=== PATIENT | female | born 1965 | race African-American/Black ===

== ENCOUNTER 2016-12-26 15:05 | Inpatient (IN) | payer OTHER ==
--- NOTE | 2016-12-26 16:01 | ER Document Report ---
ED General - General Chief Complaint: Ankle Swelling Stated Complaint: ANKLE AND LEG SWELLING Time Seen by Provider: 12/26/16 15:47 Mode of Arrival: Ambulatory Information source: Patient Notes: 51-year-old female history of hypertension who takes losartan hydrochlorothiazide 12.5 mg presents with complaints of bilateral lower extremity edema. Patient denies any shortness breath difficult to breathing denies any difficulty sleeping flat. She notes that the edema has been ongoing for months was placed on the water pill which improved initially but now it has worsened. TRAVEL OUTSIDE OF THE [place] IN LAST 30 DAYS: No - HPI Onset: Other Onset/Duration: Persistent Quality of pain: Pressure Severity: Moderate Pain Level: 2 Associated symptoms: Leg swelling - bilateral Exacerbated by: Movement Relieved by: Other - HCTZ imprved Similar symptoms previously: Yes Recently seen / treated by doctor: Yes - Related Data Allergies/Adverse Reactions: No Known Allergies Allergy (Unverified 12/26/16 15:11) Home Medications: Current Home Medications Valsartan/Hydrochlorothiazide [Valsartan-Hctz 80-12.5 mg Tab] 1 each PO DAILY [History] Past Medical History - Social History Smoking Status: Never Smoker Cigarette use (# per day): No Chew tobacco use (# tins/day): No Smoking Education Provided: No Frequency of alcohol use: None Drug Abuse: None Family History: Reviewed & Not Pertinent Patient has suicidal ideation: No Patient has homicidal ideation: No - Past Medical History Cardiac Medical History: Reports: Hx Hypertension Renal/ Medical History: Denies: Hx Peritoneal Dialysis GI Medical History: Reports: Hx Gastroesophageal Reflux Disease Past Surgical History: Reports: Hx Hysterectomy Review of Systems - Review of Systems Notes: REVIEW OF SYSTEMS: CONSTITUTIONAL : Denies fever, chills, or sweats. Denies recent illness. EENT: Denies eye, ear, throat, or mouth pain or symptoms. Denies nasal or sinus congestion or discharge. Denies throat, tongue, or mouth swelling or difficulty swallowing. CARDIOVASCULAR: Denies chest pain. Denies palpitations or racing or irregular heart beat. Admits to bilateral lower extremity edema RESPIRATORY: Denies cough, cold, or chest congestion. Denies shortness of breath, difficulty breathing, or wheezing. GASTROINTESTINAL: Denies abdominal pain or distention. Denies nausea, vomiting , or diarrhea. Denies blood in vomitus, stools, or per rectum. Denies black, tarry stools. Denies constipation. GENITOURINARY: Denies difficulty urinating, painful urination, burning, frequency, blood in urine, or discharge. FEMALE GENITOURINARY: Denies vaginal bleeding, heavy or abnormal periods, irregular periods. Denies vaginal discharge or odor. MUSCULOSKELETAL: Denies back or neck pain or stiffness. Denies joint pain or swelling. SKIN: Denies rash, lesions or sores. HEMATOLOGIC : Denies easy bruising or bleeding. LYMPHATIC: Denies swollen, enlarged glands. NEUROLOGICAL: Denies confusion or altered mental status. Denies passing out or loss of consciousness. Denies dizziness or lightheadedness. Denies headache. Denies weakness or paralysis or loss of use of either side. Denies problems with gait or speech. Denies sensory loss, numbness, or tingling. Denies seizures. PSYCHIATRIC: Denies anxiety or stress. Denies depression, suicidal ideation, or homicidal ideation. ALL OTHER SYSTEMS REVIEWED AND NEGATIVE. PHYSICAL EXAMINATION: GENERAL: Well-appearing, well-nourished and in no acute distress. HEAD: Atraumatic, normocephalic. EYES: Pupils equal round and reactive to light, extraocular movements intact, conjunctiva are normal. ENT: Nares patent, oropharynx clear without exudates. Moist mucous membranes. NECK: Normal range of motion, supple without lymphadenopathy LUNGS: Breath sounds clear to auscultation bilaterally and equal. No wheezes rales or rhonchi. HEART: Regular rate and rhythm without murmurs ABDOMEN: Soft, nontender, nondistended abdomen. No guarding, no rebound. No masses appreciated. Female : deferred Musculoskeletal: +3 pitting edema bilateral lower extremities NEUROLOGICAL: Cranial nerves grossly intact. Normal speech, normal gait. Normal sensory, motor exams PSYCH: Normal mood, normal affect. SKIN: Warm, Dry, normal turgor, no rashes or lesions noted. Dictation was performed using [employer] voice recognition software Physical Exam - Vital signs Vitals: Temp Pulse BP Pulse Ox 98.6 F 102 H 181/97 H 100 12/26/16 15:12 12/26/16 15:12 12/26/16 15:12 12/26/16 15:12 Course - Re-evaluation Re-evalutation: 12/26/16 16:01 Lung sounds are clear patient noted respiratory distress, workup for congestive heart failure ordered otherwise patient will need to increase Lasix 12/26/16 16:53 12/26/16 16:56 Pt noted have bilateral effusions, creatinine of 11, bun of 110 Dr tyler will admit if Dr Desai is on board Dr Desai 12/26/16 17:05 Dr Desai will be around until Dr Tyler will admit to the [facility] - Vital Signs Vital signs: Temp Pulse Resp BP Pulse Ox 98.6 F 102 H 181/97 H 100 12/26/16 15:12 12/26/16 15:12 12/26/16 15:12 12/26/16 15:12 - Laboratory Result Diagrams: 12/26/16 16:15 12/26/16 16:15 Laboratory results interpreted by me: 12/26/16 16:15 Chloride 109 H Carbon Dioxide 14 L BUN 117 H Creatinine 11.56 H Est GFR ( Amer) 4 L Est GFR (Non-Af Amer) 3 L Calcium 7.3 L ALT 56 H Creatine Kinase 150 H Albumin 3.3 L - Diagnostic Test Radiology reviewed: Image reviewed, Reports reviewed Discharge - Discharge Clinical Impression: Renal failure Qualifiers: Renal failure chronicity: acute Acute renal failure type: unspecified Qualified Code(s): N17.9 - Acute kidney failure, unspecified Hypertension Qualifiers: Hypertension type: essential hypertension Qualified Code(s): I10 - Essential ( primary) hypertension Hypertension Qualifiers: Hypertension type: essential hypertension Qualified Code(s): I10 - Essential ( primary) hypertension Condition: Fair Disposition: ADMITTED INPATIENT Admitting Provider: Hospitalist Unit Admitted: [facility]
[2016-12-26 16:32] LABS: ABSOLUTE BASOPHILS # (AUTO) 0.1 10^3/uL (0.0-0.2); ABSOLUTE EOSINOPHILS # (AUTO) 0.1 10^3/uL (0.0-0.6); ABSOLUTE LYMPHOCYTES (AUTO) 1.2 10^3/uL (0.5-4.7); ABSOLUTE MONOCYTES (AUTO) 0.6 10^3/uL (0.1-1.4); BASOPHILS % (AUTO) 1.2 % (0-2); EOSINOPHILS % (AUTO) 2.1 % (0-6); HGB HCT DIFFERENCE -0.8; LYMPHOCYTES % (AUTO) 20.4 % (13-45); MEAN CORPUSCULAR HEMOGLOBIN 28.3 pg (27.0-33.4); MEAN CORPUSCULAR HGB CONC 31.9 g/dL (32.0-36.0); MEAN CORPUSCULAR VOLUME 89 fl (80-97); MONOCYTES % (AUTO) 10.7 % (3-13); RED BLOOD COUNT 2.25 10^6/uL (3.72-5.28); RED CELL DISTRIBUTION WIDTH 13.8 % (11.5-14.0); SEGMENTED NEUTROPHILS % (AUTO) 65.6 % (42-78)
--- NOTE | 2016-12-26 16:40 | RADIOLOGY REPORT (SQ) ---
EXAM DESCRIPTION: CHEST PA/LAT COMPLETED DATE/TIME: 12/26/2016 4:26 pm REASON FOR STUDY: sob , bilateral edema COMPARISON: 02/12/2008 EXAM PARAMETERS: NUMBER OF VIEWS: two views TECHNIQUE: Digital Frontal and Lateral radiographic views of the chest acquired. RADIATION DOSE: NA LIMITATIONS: none FINDINGS: LUNGS AND PLEURA: Bilateral pleural effusions are present. An infiltrate versus atelectas is is suggested in both lung bases. MEDIASTINUM AND HILAR STRUCTURES: No masses or contour abnormalities. HEART AND VASCULAR STRUCTURES: Cardiomegaly with mild pulmonary vascular prominence but no indu pulm onary edema. BONES: No acute findings. HARDWARE: None in the chest. OTHER: No other significant finding. IMPRESSION: 1. Cardiomegaly with bilateral pleural effusions but no indu CHF. 2. Pneumonia versus atelectasis cannot be excluded from either lower lobe. TECHNICAL DOCUMENTATION: JOB ID: [id number] [employer]- All Rights Reserved
[2016-12-26 16:41] LABS: ALANINE AMINOTRANSFERASE 56 U/L (9-52); ALBUMIN 3.3 g/dL (3.5-5.0); ALKALINE PHOSPHATASE 108 U/L (38-126); ANION GAP 16 (5-19); ASPARTATE AMINO TRANSFERASE 23 U/L (14-36); BILIRUBIN,DIRECT 0.3 mg/dL (0.0-0.4); BILIRUBIN,TOTAL 0.3 mg/dL (0.2-1.3); BLOOD UREA NITROGEN 117 mg/dL (7-20); CALCIUM 7.3 mg/dL (8.4-10.2); CARBON DIOXIDE 14 mmol/L (22-30); CHLORIDE 109 mmol/L (98-107); CREATINE KINASE 150 U/L (30-135); CREATININE RESULT 11.56 mg/dL (0.52-1.25); GLUCOSE 87 mg/dL (75-110); SODIUM 138.7 mmol/L (137-145); TOTAL PROTEIN 6.4 g/dL (6.3-8.2)
[2016-12-26 16:52] LABS: CREATINE KINASE MB 1.57 ng/mL (<4.55)
[2016-12-26 16:57] LABS: TROPONIN I 0.095 ng/mL
[2016-12-26 17:08] LABS: HEMOGLOBIN 6.4 g/dL (12.0-15.5)
[2016-12-26 17:29] LABS: PROTHROMBIN TIME 14.3 SEC (11.4-15.4)
[2016-12-26 17:30] LABS: PARTIAL THROMBOPLASTIN TIME 31.6 SEC (23.5-35.8)
[2016-12-26] MEDS ORDERED: ACETAMINOPHEN 325 MG TABLET PO PRN (17:33)
[2016-12-26] MEDS ORDERED: ONDANSETRON HCL INJ/PF 4 MG/2 ML SDV IV PRN (17:33)
[2016-12-26] MEDS ORDERED: NITROGLYCERIN 2% OINTMENT 1 GM PACKET TP SCH (18:00)
[2016-12-26] MEDS ORDERED: CLONIDINE HCL 0.1 MG TABLET PO ONE (18:00)
[2016-12-26 18:29] LABS: THYROID STIMULATING HORMONE 4.24 uIU/mL (0.47-4.68)
--- NOTE | 2016-12-26 19:42 | HX & PHYSICAL/TRANSFER SUMM E ---
History and Physical/Transfer Summary NAME: MELISSA CASIANO : 1965 AGE: 51Y ADMITTED: 12/26/2016 TRANSFERRED: 12/26/2016 RECEIVING PHYSICIAN: Dr. Borges. RECEIVING FACILITY: [facility]. PRIMARY CARE PHYSICIAN: TESHA RICK M.D. DISCHARGE DIAGNOSES: 1. Acute renal failure. 2. Acute likely diastolic congestive heart failure. 3. Anemia, likely secondary to anemia of chronic disease and delusional anemia. 4. Metabolic acidosis, high anion gap. 5. Acute volume overload. 6. Hypertensive emergency. CHIEF COMPLAINT: Shortness of breath/swelling. HISTORY OF PRESENT ILLNESS: The patient is a 51-year-old female with a history of hypertension, who was initially started on valsartan in January of this year, and in October of this year began noticing some swelling in her lower extremities. At that time she was started on hydrochlorothiazide component to her blood pressure medication and this was also increased by her physician's hospital aides and assistants teacher. The patient reports that she has had increasing shortness of breath as well as bilateral lower extremity swelling over the last several weeks. She does complain of nausea, shortness of breath particularly with leaning forward and exertion, itching, nausea, anorexia, and has also noted some diarrhea daily for the last several weeks. The patient denies any associated hematochezia or melena. The patient denies any antecedent illness including sore throat, skin infection or other illness. The patient denies any HIV exposure. PAST MEDICAL HISTORY: Significant for hypertension. PAST SURGICAL HISTORY: Significant for hysterectomy. SOCIAL HISTORY: The patient denies tobacco, alcohol or the use of illicit drugs. FAMILY HISTORY: Her mother has hypertension. Her father is healthy. Her daughter is healthy and no one in her family has known kidney issues. CODE STATUS: FULL CODE. Her mother is her surrogate decision-maker. ALLERGIES: No known drug allergies. HOME MEDICATIONS: Only include valsartan/hydrochlorothiazide 80/12.5 one tab p.o. daily. CURRENT MEDICATIONS: 1. Tylenol 650 p.o. q.4 h. p.r.n. 2. Aspirin 325 mg p.o. daily. 3. Colace 100 mg p.o. daily. 4. Heparin 5000 units subcutaneous q.8 h. 5. Nitroglycerin 0.5 gm topical q.6 h. 6. Zofran 4 mg IV q.6 h. 7. Saline flush. REVIEW OF SYSTEMS: Constitutional: She denies fever or chills. Admits to weight gain, denies weight loss. Admits to anorexia. HEENT: Denies visual disturbance, headache, hearing loss. Respiratory: Admits to dyspnea, cough, denies hemoptysis or pleurisy. Cardiac: Denies chest pain, admits to PND, orthopnea, and edema. Abdomen: Denies abdominal pain, admits to nausea, denies vomiting, admits to diarrhea, denies constipation, hematemesis, melena, hematochezia. GI: Denies dysuria, urgency, frequency or hematuria, denies decreased urination, denies coca-cola colored urine, denies foul-smelling urine. Skin: Denies rashes or wounds, admits to dry skin around her abdomen. Musculoskeletal: Denies joint pain and actual joint swelling. Neuro: Denies weakness, numbness, dizziness, dysphasia, dysarthria, ataxia. Endocrine: Denies polydipsia, polyuria, hot or cold intolerance. Psychiatric: Denies depression, anxiety, hallucinations or delusion. Hematology: Denies easy bleeding or bruising. PHYSICAL EXAMINATION: VITAL SIGNS: Temperature is 98.6, pulse 102, blood pressure is 181/97, respiratory rate is 25, saturation of 100% on room air. GENERAL: Patient is well-fed, well-nourished female who appears to be acutely ill. She is in mild distress. HEENT: Atraumatic, normocephalic. Pupils are equal, round, and reactive to light and accommodation. Extraocular eye movements are intact. She has no scleral icterus. Her conjunctivae are clear. Her mucosa are moist. The patient has significant jugular venous distension to the midline of her jaw, and the patient's trachea midline. She has no thyromegaly and no lymphadenopathy. RESPIRATORY: The patient has diminished breath sounds bilaterally from mid-lung down as well as bilateral rales. She has no wheezes or rhonchi noted. CARDIOVASCULAR: Regular rate and rhythm. She is tachycardic. She has a rub present and she has an S4 gallop. The patient has a soft systolic murmur best heard at the left upper sternal border. ABDOMEN: Soft, mildly protuberant, nondistended, nontender to palpation without rebound, rigidity or guarding. She has negative Lacey sign and normal bowel sounds. RECTAL: Deferred. GENITOURINARY: Deferred. EXTREMITIES: Reveal 4+ bilateral lower extremity edema to the thighs. No cyanosis or clubbing is noted. MUSCULOSKELETAL: Reveals no joint swelling or deformity. VASCULAR: Reveals normal peripheral pulses, but I am unable to appreciate her dorsalis pedis pulses bilaterally. NEUROLOGIC: The patient is alert and oriented to person, place and time. Normal speech. Cranial nerves are grossly intact. Strength is equal, 5/5 in upper and lower extremities and tactile sensation is present in all extremities. SKIN: Reveals no rashes, wounds or worrisome skin lesions. PSYCHIATRIC: She does have a normal mood and affect. LABORATORY: Laboratory values are as follows: White count of 6, hemoglobin of 6.4, hematocrit of 20, platelets of 352, INR of 1.03. Sodium of 139, potassium 5, chloride 109, CO2 14, anion gap of 16, BUN of 117, creatinine of 11.56, glucose of 87, calcium of 7.3, magnesium of 1.7, total bilirubin of 0.3, direct of 0.3, AST of 23, ALT of 56, alk phos of 108, CK of 150, MB of 1.57, troponin of 0.095 and a pro-BNP of 109,000, total protein of 6.4, albumin of 3.3, TSH of 4.24, free T4 of 0.92. MARK is currently pending. UA is also pending. Chest x-ray reveals cardiomegaly with bilateral pleural effusions but no indu CHF. CONDITION AT THE TIME ON DISCHARGE: Stable. DISPOSITION: Discharged to [facility]. Total time spent on the patient, including physical examination, coordination of care, discussion with consultants, and coordination of care was 65 minutes of time. DICTATING PHYSICIAN: JAMEEL BRITT M.D. [id number] PHY#: [id number] ID: [id number] JOB#: [id number] ACCT: [id number] cc:JAMEEL BRITT M.D. >
--- NOTE | 2016-12-26 21:03 | Progress Note ---
Provider Note Provider Note: MD notified by patient's nurse of transportation services at bedside verifying patient's stability for transfer with a blood pressure of 161/96 pulse is 86 and regular respirations 23 satting 96% on room air and afebrile patient remains in acute renal failure with volume overload. We are without nephrology subspecialist subsequently pursuing transfer to tertiary care.
[2016-12-26 21:25] VITALS: BP 161/94
[2016-12-26] MEDS ORDERED: HEPARIN SOD (PORCINE) 5,000 UNIT/ML 1 ML SYRINGE SUBCUT SCH (22:00)
[2016-12-27] MEDS ORDERED: DOCUSATE SODIUM 100 MG CAPSULE PO SCH (10:00)
[2016-12-27] MEDS ORDERED: ASPIRIN 325 MG TABLET, ENT COATED PO SCH (10:00)
== END 2016-12-26 21:00 | disposition short-term general hospital (02) | DRG 291 ==
LOC: ER 15:05 → UNDOADMIN 17:24 → EH 17:24
PROVIDERS: ADMIT Family Medicine; ATTEND Family Medicine
DX: I13.2 Hypertensive heart and chronic kidney disease with heart failure and with stage 5 chronic kidney disease, or end stage renal disease (principal); I50.31 Acute diastolic (congestive) heart failure; N18.5 Chronic kidney disease, stage 5; N17.9 Acute kidney failure, unspecified; I16.1 Hypertensive emergency; E11.22 Type 2 diabetes mellitus with diabetic chronic kidney disease; D63.1 Anemia in chronic kidney disease; Z79.899 Other long term (current) drug therapy; Z79.82 Long term (current) use of aspirin; Z90.710 Acquired absence of both cervix and uterus
CPT/HCPCS: 36415; 71020; 80053; 82550; 82553; 83735; 83880; 84439; 84443; 84484; 85025; 85610; 85730; 86038; 99285; J1644